=== PATIENT | male | born 1970 | race Caucasian/White ===

== ENCOUNTER 2017-01-15 15:40 | Emergency (ER) | payer OTHER ==
[2017-01-15 15:58] VITALS: RESP 18
--- NOTE | 2017-01-15 16:16 | EDPHY ---
H & P Time Seen by Provider: 01/15/17 16:05 HPI/ROS: CHIEF COMPLAINT: Possible blood clot. HISTORY OF PRESENT ILLNESS: This patient is a 46 year old male arriving with his family complaining of calf pain worsening over the last three days and irregular heartbeats during exercise. Recently while working out, he has noticed a fluttering in his chest which feels like a "flip-flop" or "push". He notes these irregularities about once per hour. He has noted them in the past, but very rarely, maybe twice per year. He feels well otherwise, and feels this minimally affects his athletic performance. Of note, he was recently prescribed an albuterol inhaler, and he states this may coincide with the onset of his irregular heartbeat sensations. He has since discontinued the albuterol and stopped his caffeine intake, but his symptoms have not yet resolved. Three days ago, he developed a worsening ache in his left calf which is different from his usual calf pain and tightness. It came on without provocation, and by last night became "nauseatingly painful". He feels his left calf is swollen compared to the right. He denies chest pain, shortness of breath, vomiting, or other associated symptoms. REVIEW OF SYSTEMS: Constitutional: No fever, no chills Eyes: No visual changes ENT: No sore throat Respiratory: No cough, no shortness of breath Cardiac: No chest pain Gastrointestinal: No nausea, no vomiting, no abdominal pain Genitourinary: no dysuria Skin: No rash Neurological: No headache, no numbness, no weakness Psychiatric: No depression Past Medical/Surgical History: Denies. Social History: and daughter at bedside. . Lives in [place]. Nonsmoker. Smoking Status: Never smoked Physical Exam: General Appearance: Alert, no distress Eyes: Pupils equal and round, no conjunctival pallor or injection ENT, Mouth: Mucous membranes moist Neck: Normal inspection Respiratory: Lungs are clear to auscultation Cardiovascular: Regular rate and rhythm Gastrointestinal: Abdomen is soft and non- tender Neurological: A&O, nonfocal, normal gait Skin: Warm and dry, no rash Extremities: Tenderness to left posterior calf, negative Jose sign, no swelling. No pedal edema Psychiatric: Mood and affect normal Constitutional: Initial Vital Signs Temperature (C) 36.7 C 01/15/17 15:55 Heart Rate 88 01/15/17 15:55 Respiratory Rate 18 01/15/17 15:55 Blood Pressure 128/91 H 01/15/17 15:55 O2 Sat (%) 95 01/15/17 15:55 O2 Delivery Mode Room Air Allergies/Adverse Reactions: No Known Allergies Allergy (Unverified 01/15/17 15:55) Home Medications: Medication Instructions Recorded Rivaroxaban [Xarelto 15mg (*)] 15 mg PO BID #41 tab 01/15/17 Medical Decision Making - Diagnostics EKG Interpretation: EKG interpreted by me reveals normal sinus rhythm, rate 79, no ST/T changes. Interpretation: normal EKG Imaging: Discussed imaging studies w/ optical lathe operator Radiologist ED Course/Re-evaluation: 46 year old male presents with three day history of worsening left calf pain and sensations of irregular heartbeat. Physical exam reveals tenderness to left posterior calf. EKG snows normal sinus rhythm. Plan for lower extremity ultrasound. Plan for labs incliding CBC, BMP. Labs unremarkable. 17:40 Ultrasound positive for DVT in left calf. Reassessed patient. Patient will be discharged home in good condition with prescription for Xarelto. He will follow up with his primary care provider for continued management of his medication regimen. He will follow up with cardiology for further evaluation of his sensation of irregular heartbeats. Return precautions discussed. The patient is comfortable with this plan. Differential Diagnosis: includes though not limited to Afib, PVC's, SVT, calf strain, PE - Data Points Laboratory Results: Laboratory Results 01/15/17 16:00 01/15/17 16:10 Medications Given: Discontinued Medications Rivaroxaban (Xarelto) 15 mg PO EDNOW ONE Stop: 01/15/17 17:53 Last Admin: 01/15/17 18:15 Dose: 15 mg Departure - Departure Disposition: Home, Routine, Self-Care Clinical Impression: DVT (deep venous thrombosis) Condition: Good Instructions: Deep Venous Thrombosis (ED), Premature Ventricular Contractions ( ED) Additional Instructions: 1. Follow up with cardiology for a stress test for further evaluation of your irregular heartbeats. Your EKG here today was normal. 2. Take your Xarelto as prescribed. Follow up with Dr. Beyer for continued management of your medication regimen. 3. Return to the emergency department for increased pain or swelling in your leg , shortness of breath, chest pain, or other worsening of condition. Referrals: YUDELKA BEYER [Primary Care Provider] - As per Instructions Vasile Gilbert MD [Medical Doctor] - As per Instructions Prescriptions: Rivaroxaban [Xarelto 15mg (*)] 15 mg PO BID #41 tab Report Scribed for: Cierra Lloyd Report Scribed by: Taty Kuo Date of Report: 01/15/17 Time of Report: 16:19 Physician Review and Approval Statement: 01/15/17 16:19 Portions of this note were transcribed by a medical policy specialist. I personally performed a history, physical exam, medical decision making, and confirmed accuracy of information the transcribed note.
[2017-01-15 16:34] LABS: % IMMATURE GRANULYOCYTES 0.3 % (0.0-1.1); ABSOLUTE IMMATURE GRANULOCYTES 0.02 10^3/uL (0.00-0.10); ADD DIFF? NO; ADD MORPH? NO; ADD SCAN? NO; ATYPICAL LYMPHOCYTE FLAG 10 (0-99); FRAGMENT RBC FLAG 0 (0-99); HEMATOCRIT 46.1 % (40.0-51.0); HEMOGLOBIN 16.1 g/dL (13.7-17.5); LEFT SHIFT FLG 0 (0-99); LIPEMIA HEMOLYSIS FLAG 90 (0-99); MEAN CELL HEMOGLOBIN 30.2 pg (27.9-34.1); MEAN CELL HEMOGLOBIN CONCENTR. 34.9 g/dL (32.4-36.7); MEAN CELL VOLUME 86.5 fL (81.5-99.8); MEAN PLATELET VOLUME 8.8 fL (8.7-11.7); PLATELET CLUMPS FLAG 0 (0-99); PLATELET COUNT 165 10^3/uL (150-400); RED BLOOD CELL COUNT 5.33 10^6/uL (4.40-6.38); RED CELL DISTRIBUTION WIDTH 12.5 % (11.5-15.2)
--- NOTE | 2017-01-15 16:50 | CPEKG ---
Heart Rate: 79 RR Interval: 759 P-R Interval: 200 QRSD Interval: 78 QT Interval: 352 QTC Interval: 404 P [place]: 61 QRS [place]: 59 T Wave [place]: 27 EKG Severity - BORDERLINE ECG - EKG Impression: SINUS RHYTHM EKG Impression: BORDERLINE T WAVE ABNORMALITIES Electronically Signed By: Cierra Lloyd 15-Jan-2017 20:54:36
[2017-01-15 16:54] LABS: ANION GAP 15 mEq/L (8-16); CALCIUM 9.6 mg/dL (8.5-10.4); CARBON DIOXIDE 26 mEq/l (22-31); CHLORIDE 101 mEq/L (97-110); CREATININE 0.9 mg/dL (0.7-1.3); GLOMERULAR FILTRATION RATE > 60; GLUCOSE 104 mg/dL (70-100); POTASSIUM 3.5 mEq/L (3.5-5.2); SODIUM 142 mEq/L (134-144)
[2017-01-15] MEDS ORDERED: RIVAROXABAN 15 MG TAB PO ONE (17:52)
[2017-01-15 18:21] VITALS: BP 133/88; PULSE 69; TEMP 98.2; O2SAT 97
== END 2017-01-15 18:19 | disposition home or self-care (01) ==
DX: I82.402 Acute embolism and thrombosis of unspecified deep veins of left lower extremity (principal); Z79.01 Long term (current) use of anticoagulants

== ENCOUNTER 2017-01-26 19:30 | Observation (INO) | payer OTHER ==
--- NOTE | 2017-01-26 19:46 | CPEKG ---
Heart Rate: 85 RR Interval: 706 P-R Interval: 184 QRSD Interval: 80 QT Interval: 356 QTC Interval: 424 P [place]: 77 QRS [place]: 76 T Wave [place]: 35 EKG Severity - BORDERLINE ECG - EKG Impression: SINUS RHYTHM EKG Impression: BORDERLINE T WAVE ABNORMALITIES Electronically Signed By: Dejuan Feliz 26-Jan-2017 20:48:24
--- NOTE | 2017-01-26 20:03 | EDPHY ---
H & P Time Seen by Provider: 01/26/17 19:52 HPI/ROS: Chief complaint. Chest pain HPI. 46-year-old male presents emergency department with chest discomfort. He has been having off and on chest discomfort for several days. 1 week ago he was diagnosed with DVT in the calf. He had a stress test 5 days ago which showed PVCs but was otherwise normal. However he has pressure left anterior chest discomfort that radiates at times to left arm and left jaw. He feels that is maybe worse with exertion although now it seems to be more constant coming and going without provocation. He has not had similar symptoms before. The patient is taking Eliquis for his DVT. Patient has occasionally had tingling to both arms as well. He feels very anxious and took a lorazepam before arrival because he does feel quite anxious. ROS Constitutional. no fever/chills, no weakness Eyes. no problems with vision ENT. no sore throat, no nasal drainage Cardiovascular. Chest pain Respiratory. no shortness of breath, no cough Abdominal. no abdominal pain, no nausea/vomiting, no diarrhea . no problems urinating MS. no calf pain/swelling, no neck/back pain, no joint pain Skin. no rash Lymph. no swollen glands Neuro. no headache, no dizziness, no difficulty walking or with speech Past Medical/Surgical History: Healthy until recent DVT which began on a plane flight No family history of early coronary artery disease Social History: , nonsmoker, no alcohol Smoking Status: Never smoked Physical Exam: General Appearance: Alert well-developed male mild distress vital signs are stable Eyes: Pupils equal and round no pallor or injection. ENT, Mouth: Mucous membranes are moist. Respiratory: There are no retractions, lungs are clear to auscultation. Cardiovascular: Regular rate and rhythm. Gastrointestinal: Abdomen is soft and nontender, no masses, bowel sounds normal. Neurological: Awake and alert, sensory and motor exams grossly normal. Skin: Warm and dry, no rashes. Musculoskeletal: Neck is supple nontender. Extremities symmetrical, full range of motion. Psychiatric: Patient is oriented X 3, there is no agitation. Constitutional: Initial Vital Signs Temperature (C) 36.4 C 01/26/17 19:35 Heart Rate 88 01/26/17 19:35 Respiratory Rate 17 01/26/17 19:35 Blood Pressure 147/93 H 01/26/17 19:35 O2 Sat (%) 99 01/26/17 19:35 O2 Delivery Mode Room Air Allergies/Adverse Reactions: No Known Allergies Allergy (Unverified 01/15/17 15:55) Home Medications: Medication Instructions Recorded Rivaroxaban [Xarelto 15mg (*)] 15 mg PO BID #41 tab 01/15/17 Medical Decision Making - Diagnostics EKG Interpretation: EKG reviewed by me shows normal sinus rhythm with normal interval and axis. QRS is normal. Some mild lateral T-wave flattening. No significant ST elevation or depression. Rate 85 Imaging Results: Imaging Impressions Chest/Thorax CTA 01/26/17 20:19 Impression: 1. No definite pulmonary thromboemboli. 2. No aortic aneurysm or dissection. 3. No acute pulmonary disease. Findings and recommendations discussed with Emergency Department physician, Dejuan Feliz M.D., at 2142 hours, on January 26, 2017. Final report concurs with initial preliminary interpretation. CT angio chest reviewed by me and discussed with Dr. Burkett shows no evidence for pulmonary embolus, aortic aneurysm or dissection Procedures: IV normal saline, monitor ED Course/Re-evaluation: Re-evaluation 10:05 p.m.--continues to have some chest tightness. The patient, his , and I discussed imaging and lab results. We discussed treatment plan including recommendation for admission. He expresses understanding and agreement Differential Diagnosis: Patient with chest with really no risk factors for early coronary artery disease. However this week he was diagnosed with DVT and I considered pulmonary embolus. His regular physician was concerned about his chest discomfort and ask Cardiology to perform a stress test which was apparently normal other than PVCs. Patient has never had PVCs he has never had chest tightness. I am concerned about acute coronary syndrome - Data Points Laboratory Results: Laboratory Results 01/26/17 19:40 01/26/17 19:40 01/26/17 01/26/17 19:40 19:40 WBC 5.80 10^3/uL 10^3/uL (3.80-9.50) RBC 5.48 10^6/uL 10^6/uL (4.40-6.38) Hgb 16.7 g/dL g/dL (13.7-17.5) Hct 46.0 % % (40.0-51.0) MCV 83.9 fL fL (81.5-99.8) MCH 30.5 pg pg (27.9-34.1) MCHC 36.3 g/dL g/dL (32.4-36.7) RDW 11.9 % % (11.5-15.2) Plt Count 196 10^3/uL 10^3/uL (150-400) MPV 9.1 fL fL (8.7-11.7) Neut % (Auto) 38.1 % L % (39.3-74.2) Lymph % (Auto) 50.5 % H % (15.0-45.0) [place] % (Auto) 8.4 % % (4.5-13.0) Eos % (Auto) 2.1 % % (0.6-7.6) Baso % (Auto) 0.7 % % (0.3-1.7) Nucleat RBC Rel Count 0.0 % % (0.0-0.2) Absolute Neuts (auto) 2.21 10^3/uL 10^3/uL (1.70-6.50) Absolute Lymphs (auto) 2.93 10^3/uL 10^3/uL (1.00-3.00) Absolute Monos (auto) 0.49 10^3/uL 10^3/uL (0.30-0.80) Absolute Eos (auto) 0.12 10^3/uL 10^3/uL (0.03-0.40) Absolute Basos (auto) 0.04 10^3/uL 10^3/uL (0.02-0.10) Absolute Nucleated RBC 0.00 10^3/uL 10^3/uL (0-0.01) Immature Gran % 0.2 % % (0.0-1.1) Immature Gran # 0.01 10^3/uL 10^3/uL (0.00-0.10) Sodium 141 mEq/L mEq/L (134-144) Potassium 3.9 mEq/L mEq/L (3.5-5.2) Chloride 105 mEq/L mEq/L (97-110) Carbon Dioxide 21 mEq/l L mEq/l (22-31) Anion Gap 15 mEq/L mEq/L (8-16) BUN 24 mg/dL H mg/dL (7-23) Creatinine 0.9 mg/dL mg/dL (0.7-1.3) Estimated GFR > 60 Glucose 107 mg/dL H mg/dL (70-100) Calcium 9.8 mg/dL mg/dL (8.5-10.4) Troponin I 0.014 ng/mL ng/mL (0.000-0.034) Medications Given: Discontinued Medications Sodium Chloride (Ns) 1,000 mls @ 0 mls/hr IV ONCE ONE; Wide Open PRN Reason: Protocol Stop: 01/26/17 20:20 Last Admin: 01/26/17 20:35 Dose: 1,000 mls Departure - Departure Disposition: [facility] Inpatient Acute Clinical Impression: Chest pain Qualifiers: Chest pain type: unspecified Qualified Code(s): R07.9 - Chest pain, unspecified Condition: Good Referrals: YUDELKA DALEY [Primary Care Provider] - As per Instructions
[2017-01-26 20:17] LABS: % IMMATURE GRANULYOCYTES 0.2 % (0.0-1.1); ABSOLUTE IMMATURE GRANULOCYTES 0.01 10^3/uL (0.00-0.10); ADD DIFF? NO; ADD MORPH? NO; ADD SCAN? NO; ATYPICAL LYMPHOCYTE FLAG 10 (0-99); FRAGMENT RBC FLAG 0 (0-99); HEMOGLOBIN 16.7 g/dL (13.7-17.5); LEFT SHIFT FLG 0 (0-99); LIPEMIA HEMOLYSIS FLAG 90 (0-99); MEAN CELL HEMOGLOBIN 30.5 pg (27.9-34.1); MEAN CELL HEMOGLOBIN CONCENTR. 36.3 g/dL (32.4-36.7); MEAN CELL VOLUME 83.9 fL (81.5-99.8); MEAN PLATELET VOLUME 9.1 fL (8.7-11.7); PLATELET CLUMPS FLAG 0 (0-99); PLATELET COUNT 196 10^3/uL (150-400); RED BLOOD CELL COUNT 5.48 10^6/uL (4.40-6.38); RED CELL DISTRIBUTION WIDTH 11.9 % (11.5-15.2)
[2017-01-26] MEDS ORDERED: NS 1,000 ML IV ONE (20:19)
[2017-01-26] MEDS ORDERED: IOPAMIDOL (ISOVUE 370) 100 ML BTL IV ONE (20:43)
[2017-01-26 20:58] LABS: ANION GAP 15 mEq/L (8-16); CALCIUM 9.8 mg/dL (8.5-10.4); CARBON DIOXIDE 21 mEq/l (22-31); CHLORIDE 105 mEq/L (97-110); CREATININE 0.9 mg/dL (0.7-1.3); GLOMERULAR FILTRATION RATE > 60; GLUCOSE 107 mg/dL (70-100); POTASSIUM 3.9 mEq/L (3.5-5.2); SODIUM 141 mEq/L (134-144)
[2017-01-26 21:10] LABS: TROPONIN I 0.014 ng/mL (0.000-0.034)
[2017-01-26] MEDS ORDERED: ASPIRIN 81 MG CHEWABLE TAB PO ONE (22:34)
[2017-01-26] MEDS ORDERED: ONDANSETRON DISINTEGRATING 4 MG TAB PO PRN (23:03)
[2017-01-26] MEDS ORDERED: TEMAZEPAM 15 MG CAP PO PRN (23:03)
[2017-01-26] MEDS ORDERED: ACETAMINOPHEN 325 MG TAB PO PRN (23:03)
[2017-01-26] MEDS ORDERED: ONDANSETRON 4 MG/2 ML VIAL IVP PRN (23:03)
[2017-01-26] MEDS ORDERED: oxyCODONE IR 5 MG TAB PO PRN (23:03)
--- NOTE | 2017-01-27 00:53 | GHP ---
[f rep st] HISTORY AND PHYSICAL DATE OF ADMISSION: 01/26/2017 CHIEF COMPLAINT: Chest pain. HISTORY OF PRESENT ILLNESS: 46-year-old man presents with chest pain. Recent history notable for h aving a DVT diagnosed in his left calf on January 15. This is thought to be due to travel. Immediate ly prior to this diagnosis, he had noticed what has now been shown to be frequent PVCs. He says jose alfredo t these are inducible with exercise. He also noted some bandlike chest pain which is not exertional , actually better with exercise, waxes and wanes, has been present for about the last week. Because of this, Dr. Beyer sent him to get a stress test which was negative for ischemia, though it did show PVCs. He presents again with more concerns with this chest pain. He notes that he has had maybe s ome shortness of breath associated with this. No nausea, no diaphoresis. He does note that his exe rcise tolerance has fallen off in the past year. He was a competitive runner and cyclist, and he sa ys that in the last year friends that he used to cycle with have been dropping him which has not bee n typical. He tells me that his blood pressure has never been high. His LDL is 128. His mother di ed of heart disease though she had rheumatic fever. His father young of cancer, never had high blood pressure. PAST MEDICAL/SURGICAL HISTORY: Recent diagnosis of DVT as above. MEDICATIONS: Xarelto. ALLERGIES: No known drug allergies. FAMILY HISTORY: No early heart disease. SOCIAL HISTORY: He does not smoke. He rarely drinks. REVIEW OF SYSTEMS: 10-point review of systems is conducted and is negative except per HPI. PHYSICAL EXAM: VITAL SIGNS: Blood pressure is 121/84, heart rate 72, respiration rate 18, saturati ng 97% on room air, temperature is 36.4. GENERAL: Mr. Bledsoe is a pleasant man, resting comfortab ly in bed. Appears to be in no acute distress. HEENT: Normocephalic, atraumatic. CARDIOVASCULAR: Regular rate and rhythm. No murmurs, rubs, or gallops. PULMONARY: No respiratory distress. Cam[place] gs are clear bilaterally. ABDOMEN: Soft, nontender, nondistended. SKIN: Exam shows no rash. : Exam shows no [place]. NEUROLOGIC: Exam shows him to be alert and oriented x3. He is moving all e xtremities. PSYCHIATRIC: Exam shows normal mood and affect. LABORATORY FINDINGS: CBC is normal. Bicarb is 21, glucose 107. Troponin is 0.014. CT angiogram shows no PE, no aortic aneurysm or dissection. normal CT scan. Discussed this with Dr Gabby Feliz. Will admit to telemetry. EKG shows nothing overtly ischemic. He does have high voltages in his precordial leads. He does hartman ve mild T-wave flattening in lead 3. IMPRESSION AND PLAN: This is a 46-year-old healthy man with recent diagnosis of deep venous thrombo sis, presents with chest pain. 1. Chest pain. Differential does include cardiac, although he has had a negative stress test. Dr. Feliz has consulted Dr. Rodriguez of Cardiology who will see him tomorrow. Given his recent PVCs as well as decreased exercise tolerance, I have also ordered an echocardiogram. I have asked him no t to eat after midnight in case further testing is warranted per Cardiology. We will trend troponin s tonight. 2. Recent diagnosis of deep venous thrombosis. He took his Xarelto prior to presentation here. I will hold it pending cardiac workup. If should be restarted at 15 mg p.o. twice daily for a total o f 21 days and then drop to 20 mg p.o. daily. /[id number]/MODL
[2017-01-27 04:40] VITALS: RESP 14
--- NOTE | 2017-01-27 08:36 | CPEKG ---
Heart Rate: 75 RR Interval: 800 P-R Interval: 188 QRSD Interval: 78 QT Interval: 372 QTC Interval: 416 P [place]: 75 QRS [place]: 83 T Wave [place]: 36 EKG Severity - NORMAL ECG - EKG Impression: SINUS RHYTHM Electronically Signed By: Vasile Gilbert 27-Jan-2017 16:24:00
[2017-01-27 11:12] VITALS: BP 114/87; PULSE 79; TEMP 98; O2SAT 97
--- NOTE | 2017-01-27 11:54 | GCON ---
[f rep st] CONSULTATION CARDIOLOGY CONSULTATION. INDICATION FOR CARDIOLOGY CONSULTATION: Known history of premature ventricular contractions, ongoin g chest pressure. HISTORY OF PRESENT ILLNESS: The patient is a 46-year-old male. He has a significant past history o f recent diagnosis of DVT in his left calf on January 15. This was initially found after he had a sig nificant amount traveling and thought was due to this. Around a similar time, he reported having ep isodes of irregular heartbeat, was found to have premature ventricular contractions, and his primary care provider, had him undergo exercise treadmill testing on January 20. This was done at our offic e at [facility]. He was able to go for 12 minutes. He had no significant ST, no exercise-induce d EKG changes suggestive of ischemia. He was noted to have premature ventricular contractions with stress in recovery. He did report palpitations, that did correlate with this. He reports to me ramakrishna mccloud that he had been on for the last 2 weeks, since his diagnosis of DVT. He has been not icing some left anterior chest pressure, reporting occasional radiation into his right arm and right neck. He does feel that the symptoms do improve when he is lying down, and they are not usually as sociated with exertion. He has denied any associated symptoms of shortness of breath, nausea, or di aphoresis. After his diagnosis on January 15 of DVT, he was started on full anticoagulation therapy of Xarelto, which he reports he has been compliant with. He does report last evening, with these o ngoing episodes of chest pressure, which he usually says can last for 30 minutes, up to all day, his symptoms did increase significantly more. Last evening, when he was reading especially, he reports after reading about cardiac ischemic symptoms. [facility]. There, his initial electrocardiogram showed sinus rhythm, with flattened T-waves in the lateral leads. Initial troponin was negative. Due to his recent diagnosis of DVT, he did have a CT A of the chest done which showed no definitive PEs, no aortic dissection, no acute pulmonary disease . He was admitted to the telemetry floor, in which he has had repeated troponin levels x2 which hav e all been negative. On continuous cardiac monitoring, he has been shown to be sinus arrhythmia, bu t with no significant PVCs or pauses or malignant arrhythmias. He reports no shortness of breath, o rthopnea, PND, edema, lightheadedness, near-syncope, or syncopal events. He reports no recent fever s, chills or night sweats. Patient reports significant cardiac risk factors of sex, borderline hype rlipidemia. Patient does also report occasional episode of palpitations, usually associated with re st, occasionally with exertion, but usually subsides with rest, with no associated symptoms, usually lasting for less than 5-10 minutes. PAST MEDICAL HISTORY: As mentioned above. Recent diagnosis of DVT on January 15. The patient repo rts borderline hyperlipidemia. PAST SURGICAL HISTORY: Denies. FAMILY HISTORY: Patient reports mother had rheumatic fever as a child and had significant valvular heart disease with previous valvular replacements, dying ultimately of her valvular heart disease. He reports his father at young age of coronary artery disease. He reports he has had 2 sibling s, both by suicide. No significant family history of early heart disease. SOCIAL HISTORY: The patient is . He reports he was a previous smoker, quitting in 1988. Re ports no alcohol intake. Reports significant reduction of caffeine intake since starting palpitatio ns. He exercises on a routine basis with significant bike riding. Denies any illicit drug use. ALLERGIES: Patient has no known drug allergies. MEDICATIONS AT HOME: Include Xarelto 15 mg p.o. b.i.d. which was started on February 04, herbs and supplements, multivitamin daily. REVIEW OF SYSTEMS: A 10-point review of systems done on patient, all negative except as mentioned i n HPI. PHYSICAL EXAMINATION: GENERAL APPEARANCE: Medium built, well-groomed, male. He is alert and oriented to person, place, time, situation. Appears to be under no acute distress. VITAL SIGN S: Current vital signs are blood pressure 121/81, heart rate of 67, sinus arrhythmia on the monitor , respirations 14, saturating 96% on room air, temperature of 36.6 degrees Celsius. HEENT: Head is normocephalic. Lips and tongue are pink and moist with no signs of cyanosis. Conjunctivae pink. NECK: Trachea is midline, +2 carotid pulses bilateral. No auscultated bruits. No jugular vein dis tention. RESPIRATORY: Lungs clear to auscultation. No rhonchi, rales or wheezes. No accessory mu scle use. No intercostal muscle retraction noted. CARDIAC: Regular rate, regular rhythm, S1, S2. No S3, S4, gallops, rubs or murmur noted. ABDOMEN: Soft, nontender, bowel sounds x4 quadrants, no organomegaly, no palpable masses. SKIN: [place], warm, dry. No cyanosis, no clubbing, no peripheral edema. VASCULAR: +2 carotids bilateral, +2 radials bilateral, +2 dorsal pedal and posterior tibia l pulses bilateral. LABORATORY STUDIES: On admission, WBC 5.80, hemoglobin of 16.7, hematocrit of 46.0, platelet count 196. Sodium 141, potassium 3.9, chloride 105, CO2 21, BUN 24, creatinine 0.9, glucose 107, calcium 9.8, magnesium level is pending. TSH level is pending. The patient with 3 troponin levels, initial 0.014, falling every 6 hours to less than 0.012. STUDIES: Initial electrocardiogram as mentioned above. This a.m. electrocardiogram showing sinus r hythm, normal axis, no significant ST or T-wave abnormalities suggesting of ischemia. CTA of the chest showing no pulmonary embolism. No aortic dissection or aneurysm. No acute pulmona ry disease. Preliminary echocardiogram results showing normal LV systolic function with no wall motion abnormali ties. RV normal systolic function with normal lung pressure. ASSESSMENT AND PLAN: 1. Chest pain: Patient reporting intermittent chest pressure, somewhat atypical for cardiac ischem ia, but has been having continuation of this. He was also noted on stress testing to have frequent exercise treadmill testing done on January 20, showing no significant ST shifts suggesting of ische susan, but was noted to have premature ventricular contractions during stress in recovery. Patient do es report chest pain did worsen last evening, especially with being under extreme stress. Negative troponins x3. Electrocardiogram showing no signs of significant ST changes suggestive of ischemia. CTA negative for dissection, aneurysm or PE. At this time, due to his history of frequent PVCs, de spite having a normal exercise treadmill testing, that is somewhat concerning especially with his on going episodes of chest pressure. We did discuss potential options for further evaluations with car diac catheterization or having an exercise treadmill with myocardial perfusion imaging done. Due to him being on Xarelto, he should not have a catheterization done for at least 48 hours off medicatio n, last dose was last evening. I have recommended that he undergo ETT MPI study today. He is agree able. We will plan cath to be done later this afternoon. Again, echocardiogram showed no wall samantha on abnormalities. 2. Palpitations. The patient reports occasional episode of palpitations, with most recent exercise treadmill testing, noted to have premature ventricular contractions. Really no PVCs have been note d on continuous cardiac monitoring today. Again will repeat exercise treadmill testing with MPI sonny dy to evaluate for possible ischemia. Echocardiogram shows no significant structural heart disease. Will also have him get a magnesium and a TSH level for further evaluation. If all negative and no signs of ischemia, consideration may be attempting trial low-dose beta sophie to see if this helps improve his symptoms. 3. Recent diagnosis of DVT. The patient has been on Xarelto 15 mg p.o. b.i.d. with plans of stayin g on this dosage for 21 days then being switched to 20 mg as per protocol. Last dose was last eveni ng. We will hold this morning's dose until stress testing can be completed. If deemed necessary fo r him to undergo coronary angiogram, then consideration of bridging him with Lovenox until the day o f catheterization. If the MPI study is normal, then will restart him on his Xarelto. Thank you for this consultation. We will be glad to follow along with you. /[id number]/MODL
--- NOTE | 2017-01-27 14:02 | ECHO ---
[id number] + + [address] : : [place] [address] : : [phone] + Adult Echocardiographic Report + ---+ :Name: VJ SANCHEZselvin Date: 01/27/2017 08:40 AM : : Hospital Admission Number: [id number] Location: 208: :: 1970 Gender: Male Height: 72 in : :Age: 46 yrs Race: WH Weight: 160 lb : :Reason For Study: Eval LV Fx : : BSA: 1.9 meters2 : :History: Chest Pain, PVS's, Negative Troponins, DVT x 1 : :week ago. : + ---+ MMode/2D Measurements \T\ Calculations IVSd: 0.81 cm LVIDd: 4.8 cm FS: 43.5 % Ao root diam: 3.5 cm LVPWd: 1.0 cm LVIDs: 2.7 cm EDV(Teich): 107.9 ml ACS: 2.5 cm ESV(Teich): 27.5 ml EF(Teich): 74.6 % Normal Measurement Values: + + :LVIDd (3.5-5.7cm) IVSd (0.6-1.1cm) LVPWd (0.6-1.1cm) Aortic Root (2.0-3.7cm)Left Atrium (1.5-4.0cm): :LV Vol(d) (76-115ml) LV Vol(s) (29-48ml) Ejec Fraction (50-65%)PV Seng (0.6- 1.2m/s) TV Seng (0.4-1.0m/s) : :MV E Seng (0.8-1.0m/s)MV A Seng (0.3-1.0m/s)LVOT Seng (0.7-1.2m/s) Asc Ao Seng ( 0.9-1.8m/s) : + + Doppler Measurements \T\ Calculations MV E max seng: Ao V2 max: LV V1 max: PA V2 max: 71.1 cm/sec 115.4 cm/sec 87.4 cm/sec 101.8 cm/sec MV A max seng: Ao max P.3 mmHgLV V1 max PG: PA max P.8 cm/sec 3.1 mmHg 4.1 mmHg MV E/A: 1.4 PI end-d seng: TR max seng: 69.2 cm/sec 270.1 cm/sec TR max P.2 mmHg RAP systole: 5.0 mmHg RVSP(TR): 34.2 mmHg Left Ventricle The left ventricle is normal in size. There is normal left ventricular wall thickness. The left ventricular ejection fraction is normal. Ejection Fraction = 75%. The left ventricular wall motion is normal. Right Ventricle The right ventricle is normal in size and function. Atria The left atrial size is normal. Right atrial size is normal. Mitral Valve The mitral valve is normal in structure and function. There is no evidence of mitral valve prolapse. There is no mitral valve stenosis. There is no mitral regurgitation noted. Tricuspid Valve Normal tricuspid valve. No tricuspid regurgitation. Aortic Valve The aortic valve is normal in structure and function. There is no aortic stenosis. There is no aortic insufficiency. Pulmonic Valve The pulmonic valve is not well visualized. trace to mild pulmonic valvular regurgitation. Great Vessels The aortic root is normal size. Pericardium/Pleural There is no pericardial effusion. Conclusion A complete two-dimensional transthoracic echocardiogram was performed (2D, M-mode, Doppler and color flow Doppler). 1. The left ventricle is normal in size and function. The Ejection Fraction = 75%. 2. The mitral valve is normal in structure and function. 3. The aortic valve is normal in structure and function. 4. The pulmonary artery pressure estimate is with in normal limits. 5. No old studies for comparison. Final Reading Physician: Vasile Brennan MD electronically signed on 01/27/2017 02:01 PM Ordering Physician: Nicola Gresham Performed By: Lon Jackson, ROCCOCS
--- NOTE | 2017-01-27 14:20 | CPR ---
[f rep st] NONINVASIVE CARDIAC PROCEDURE REPORT PROCEDURE PERFORMED: Exercise treadmill with exercise treadmill myocardial perfusion imaging study. INDICATION FOR TESTING: Chest pressure with notable history of premature ventricular contractions. PRE: After obtaining informed consent, the patient was placed on electrocardiogram, initial EKG josé wing sinus rhythm, normal axis, nonspecific T-wave abnormalities in inferior lateral leads. The pat ient denied having any chest pain, shortness of breath, or symptoms suggestive of ischemia. Initial blood pressure of 120/70, saturation 94%. STRESS: The patient was placed on exercise treadmill, following standard Chad protocol, with the f jamie findings: 1. The patient exercised for 8 minutes and 32 seconds. 2. Heart rate attained was 157 beats per minute, which was 90% of maximum predicted heart rate. 3. The patient attained 9.8 METs. 4. The patient had no symptoms suggestive of ischemia during testing. 5. The patient had minimal submillimeter upsloping ST depression in inferior lateral leads. No phillip ar diagnosis of ischemia. 6. BP response: Resting 120/70, peak 146/76. 7. SpO2 greater than 90%. 8. The patient was noted to have occasional premature ventricular contractions during stress. 9. Test was stopped due to maximum effort. 10. Casey treadmill score of 8, placing the patient at low cardiovascular risk. RECOVERY: The patient recovered for 5 minutes, and heart rate returned back to normal. He, again, remained asymptomatic, final blood pressure of 122/78, saturation 94%. Vital signs stable. Patient taken to nuclear medicine for post-stress imaging. IMPRESSION: 46-year-old male, admitted to the hospital for chest pain, who has been noted to have P VCs on previous exercise treadmill, undergoing Lexiscan MPI study for further evaluation of ischemia . Exercise treadmill showed nondiagnostic for ischemia. Casey treadmill score of 8, placing him at low cardiovascular risk. Myocardial perfusion imaging pending. /[id number]/MODL
[2017-01-27] MEDS ORDERED: PANTOPRAZOLE SODIUM 40 MG TAB PO ONE (15:07)
--- NOTE | 2017-01-27 15:31 | PDDCSUM ---
Discharge Summary Discharge Summary: DISCHARGE SUMMARY FOLLOW-UP ITEMS: Reassess GERD treatment as an outpatient DATE OF ADMISSION: 01/26/2017 DATE OF DISCHARGE: 01/27/2017 DISCHARGE DIAGNOSES: 1. Suspected GERD 2. Acute chest pain 3. Deep venous thrombosis present on admission 4. Possible symptomatic PVCs CONSULTATIONS: Cardiology PROCEDURES / IMAGING: Nuclear medicine stress test demonstrating no inducible ischemia, echocardiogram normal, CT angiogram normal CHIEF COMPLAINT: Acute chest pain SUBJECTIVE: Patient is chest pain-free at time of discharge PHYSICAL EXAM ON DISCHARGE: Systolic blood pressure is 120, heart rate 60, afebrile overnight, satting well on room air, alert awake oriented x3, no apparent distress, pain level 0/10 LABS ON DISCHARGE: Troponin negative x3 HOSPITAL COURSE BY PROBLEM: 1. Suspected GERD. Most likely cause of patient's chest pain is untreated GERD , as he has a long history of reflux, but has been hesitant to initiate any scheduled medications. I recommended scheduled proton pump inhibitor, engaging his level of relief, and then proceeding with scheduled [id number] medications beyond that if he does experience an element of relief. If he does not, I would recommend referring him to a sales order coordinator for upper endoscopy. 2. Acute chest pain. Most likely secondary to GERD, although symptomatic PVCs are certainly possible. The patient was ruled out for acute coronary syndrome with negative troponin x3, ruled out for pulmonary embolism with negative CT angiogram, ruled out for inducible ischemia with negative nuclear medicine stress test. Patient has reduced exercise tolerance was also evaluated with an echocardiogram, and it was normal. 3. Deep venous thrombosis present on admission. Patient was continued on his Xarelto. 4. Possible symptomatic PVCs. Patient did demonstrate PVCs on cardiac monitoring, it is unclear whether these are symptomatic contributing to his presentation of chest pain. We have given him a prescription for low-dose beta- sophie, and advised him regarding the side effects. Patient will gauge response. DISCHARGE MEDICATIONS: Please see official discharge medication reconciliation sheet in chart , metoprolol 12.5 mg twice daily, pantoprazole 40 mg once daily. DISCHARGE INSTRUCTIONS: Please follow up with primary care provider within 1 week and gauge response to medications above.
[2017-01-27] MEDS ORDERED: METOPROLOL TARTRATE 25 MG TAB PO SCH (21:00)
== END 2017-01-27 15:52 | disposition home or self-care (01) ==
LOC: INTOOBSV 22:33 → F2W 23:31
PROVIDERS: ADMIT Student in an Organized Health Care Education/Training Program; ATTEND Student in an Organized Health Care Education/Training Program
DX: R07.9 Chest pain, unspecified (principal); I82.4Z2 Acute embolism and thrombosis of unspecified deep veins of left distal lower extremity; Z79.01 Long term (current) use of anticoagulants
CPT/HCPCS: 71275; 78452; 93005; 93017; 93306; A9500; G0378; Q9967